=== PATIENT | male | born 1985 | race Caucasian/White ===

== ENCOUNTER 2020-03-17 20:01 | Emergency (ER) | payer OTHER ==
--- NOTE | 2020-03-17 20:48 | ER Document Report ---
ED Medical Screen (RME) - General Chief Complaint: Head Injury Stated Complaint: HEAD INJURY/HEADACHE Primary Care Provider: FARIDA JORDAN [Primary Care Provider] - Follow up as needed Notes: Patient is a 34-year-old white male with a history of TBI and PTSD who presents to the emergency department with a chief complaint of facial and head injury that occurred a few hours prior to arrival. The patient states he was lifting a heavy wooden object up onto a shelf at his job when the items on the shelf suddenly fell striking him in the face and head. He states he immediately felt dazed and in a "haze". He states he had a little headache at that time, took ibuprofen at about 45 minutes later started to feel worse so he was advised to be evaluated. His job sent him to [facility] who referred him here for further evaluation. The patient admits to some photophobia at this time. Admits to soreness in the face, nose and forehead as well as a global headache. Denies any radiation of pain. Denies any visual disturbances, dizziness or neck pain. No other pain, complaints or concerns at this time. I have treated and performed a rapid initial assessment of this patient. A comprehensive ED assessment and evaluation of the patient, analysis of test results and completion of medical decision making process will be conducted by additional ED providers. PHYSICAL EXAMINATION: GENERAL: Well-appearing, well-nourished and in no acute distress. A&Ox4. Answers questions appropriately. - Related Data Allergies/Adverse Reactions: No Known Allergies Allergy (Unverified 10/06/12 16:55) Past Medical History Neurological Medical History: Reports: Hx Migraine Past Surgical History: Reports: Hx Oral Surgery - WISDOM TEETH, Hx Orthopedic Surgery - knee x4. Denies: Hx Adenoidectomy - Immunizations Hx Diphtheria, Pertussis, Tetanus Vaccination: Yes Physical Exam - Vital signs Vitals: Temp Pulse Resp BP Pulse Ox 98.5 F 57 L 16 150/96 H 98 03/17/20 20:03/17/20 20:03/17/20 20:03/17/20 20:03/17/20 20:07 Course - Vital Signs Vital signs: Temp Pulse Resp BP Pulse Ox 98.5 F 57 L 16 150/96 H 98 03/17/20 20:03/17/20 20:07 03/17/20 20:07 03/17/20 20:07 03/17/20 20:07 Doctor's Discharge - Discharge Referrals: LOCALMD,NO [Primary Care Provider] - Follow up as needed
--- NOTE | 2020-03-17 21:41 | RADIOLOGY REPORT (SQ) ---
CT BRAIN, CERVICAL SPINE, AND FACIAL BONES HISTORY: Trauma. COMPARISON: None. TECHNIQUE: CT scan of the brain, cervical spine, and facial bones was performed without IV contrast. This exam was performed according to our departmental dose-optimization program, which includes automated exposure control, adjustment of the mA and/or kV according to patient size and/or use of iterative reconstruction technique. FINDINGS: BRAIN: The ventricles, cisterns, and sulci are age-appropriate. No evidence of acute infarction, intracranial hemorrhage, extra-axial fluid collection, or midline shift. No depressed skull fracture. CERVICAL SPINE: No acute cervical fracture or prevertebral soft tissue swelling is seen. There is straightening of the normal cervical lordosis, which may be due to cervical collar, muscle spasm, or patient positioning. The facet joints and disc spaces are preserved. No advanced canal stenosis is identified. FACIAL BONES: No acute facial bone fracture is seen. No air-fluid levels are seen in the paranasal sinuses. The mastoid air cells are clear. No retrobulbar mass or hematoma is identified. IMPRESSION: 1. No acute intracranial hemorrhage. 2. No acute fracture or subluxation of the cervical spine. 3. No acute maxillofacial fracture.
[2020-03-17] MEDS ORDERED: ONDANSETRON ODT 4 MG TAB (6 TAB/ER DISP) PO PRN (22:16)
--- NOTE | 2020-03-17 22:19 | ER Document Report ---
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 Please see triage note for further details. - Related Data Allergies/Adverse Reactions: No Known Allergies Allergy (Unverified 10/06/12 16:55) Past Medical History - Social History Smoking Status: Never Smoker Chew tobacco use (# tins/day): Yes Frequency of alcohol use: Social Drug Abuse: Other Family History: Reviewed & Not Pertinent Neurological Medical History: Reports: Hx Migraine Past Surgical History: Reports: Hx Oral Surgery - WISDOM TEETH, Hx Orthopedic Surgery - knee x4. Denies: Hx Adenoidectomy - Immunizations Hx Diphtheria, Pertussis, Tetanus Vaccination: Yes Review of Systems - Review of Systems EENT: Other - Photophobia Neurological/Psychological: Headaches -: Yes All other systems reviewed and negative Physical Exam - Vital signs Vitals: Temp Pulse Resp BP Pulse Ox 98.5 F 57 L 16 150/96 H 98 03/17/20 20:07 03/17/20 20:07 03/17/20 20:07 03/17/20 20:07 03/17/20 20:07 - General General appearance: Appears well, Alert In distress: None - HEENT Head: Normocephalic, Other - Mild abrasion to left frontal forehead Eyes: Normal Conjunctiva: Normal Extraocular movements intact: Yes Pupils: PERRL Ears: Normal External canal: Normal. No: Blood in canal Tympanic membrane: Normal. No: Hemotympanum Nasal: Other - Mild abrasion and swelling of the proximal nasal bridge. No: Septal hematoma Mouth/Lips: Normal Pharynx: Normal Neck: Normal, Supple - Respiratory Respiratory status: No respiratory distress Chest status: Nontender Breath sounds: Normal Chest palpation: Normal - Cardiovascular Rhythm: Regular Heart sounds: Normal auscultation - Neurological Neuro grossly intact: Yes Cognition: Normal Orientation: AAOx4 Earline Coma Scale Eye Opening: Spontaneous Butler Coma Scale Verbal: Oriented Butler Coma Scale Motor: Obeys Commands Earline Coma Scale Total: 15 Speech: Normal Cranial nerves: Normal Cerebellar coordination: Normal Motor strength normal: LUE, RUE, LLE, RLE 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 No: Pronator drift Sensory: Normal - Psychological Associated symptoms: Normal affect, Normal mood - Skin Skin Temperature: Warm Skin Moisture: Dry Skin Color: Normal, Other - Normal on exposed skin except area as described above Course - Re-evaluation Re-evalutation: 03/17/20 22:19 Patient's imaging studies negative for any acute process. History and physical consistent with a mild concussion. We discussed head injury protocols. Counseled him regarding the importance of outpatient follow-up and advised to return here or any ER immediately with any new, persistent or worsening symptoms. He verbalized understood and agreed. - Vital Signs Vital signs: Temp Pulse Resp BP Pulse Ox 98.5 F 57 L 16 150/96 H 98 03/17/20 20:38 03/17/20 20:07 03/17/20 20:07 03/17/20 20:07 03/17/20 20:07 Discharge - Discharge Clinical Impression: Head injury Qualifiers: Encounter type: initial encounter Qualified Code(s): S09.90XA - Unspecified injury of head, initial encounter Concussion Qualifiers: Encounter type: initial encounter Loss of consciousness presence/duration: without LOC Qualified Code(s): S06.0X0A - Concussion without loss of consciousness, initial encounter Condition: Stable Disposition: HOME, SELF-CARE Instructions: Head Injury Precautions ([facility]), Concussion ([facility]) Additional Instructions: Please limit visual stimuli over the next 24 to 48 hours as discussed. Tylenol at this point for pain. Cold wraps to the head. He be given nausea medication, Zofran, in the event that you become nauseous. Please stay in dimly lit rooms for now. Please follow-up with the provider of your choice or the occupational provider your job for first due to for continued outpatient management and clearance for return to work. Please return here or any ER immediately with any new, persistent or worsening symptoms. Prescriptions: Ondansetron [Zofran Odt 4 mg Tablet (6 Tab/ER Disp)] 4 tab PO Q8HP PRN #6 [id number] PRN Reason: Referrals: LOCALMD,NO [Primary Care Provider] - Follow up as needed
[2020-03-17 22:43] VITALS: BP 147/79
== END 2020-03-17 22:36 | disposition home or self-care (01) ==
LOC: ER 20:01
DX: S06.0X0A Concussion without loss of consciousness, initial encounter (principal); S00.81XA Abrasion of other part of head, initial encounter; S00.31XA Abrasion of nose, initial encounter; R51 Headache; H53.149 Visual discomfort, unspecified; W20.8XXA Other cause of strike by thrown, projected or falling object, initial encounter; Y93.89 Activity, other specified; Y92.512 Supermarket, store or market as the place of occurrence of the external cause; Y99.0 Civilian activity done for income or pay; Z72.0 Tobacco use
CPT/HCPCS: 70450; 70486; 72125; 99283